=== PATIENT | female | born 1980 | race Caucasian/White ===

== ENCOUNTER 2018-07-03 15:07 | Emergency (ER) | payer OTHER, SELFPAY ==
[2018-07-03 15:10] VITALS: BP 124/71; PULSE 82; RESP 14; TEMP 36.3; O2SAT 100; BMI 23.3
--- NOTE | 2018-07-03 15:50 | ED.ABDPAIN ---
HPI - Abdominal Pain <Jaleesa Corona PA-C - Last Filed: 07/03/18 21:58> General Chief Complaint: Abdominal Pain Stated Complaint: PELVIC PAIN ABD PAIN Time Seen by Provider: 07/03/18 15:41 Source: patient Mode of arrival: ambulatory Limitations: no limitations History of Present Illness HPI narrative: This 37-year-old male to worsening pelvic pain. She states that this started 2 days ago and was just treating with [id number] medications but became more severe while driving to work this morning. She took ibuprofen, acetaminophen but pain continued to worsen. She came home and took a couple of leftover Percocet from her hysterectomy, but this has continued to worsen. Pain is sharp, constant, worse with walking, movement and certain positions, better with warm pack applied. She had a left oophorectomy 03/10 and endometriosis lesions removed. There was an endometrioma on the ovary. She has a history of hysterectomy secondary to endometriosis and fibroids. She was also found to have a leiomyoma on her recent surgery. Her right ovary is intact. She states that she had a painful bowel movement this morning, but no blood in the stools, hard stools, or diarrhea. She has had intermittent bladder and urethral pain for some time, and has chronic hematuria. She states that she has had uro gynecology workup including CT, ultrasound, cystoscopy and no specific cause found. She states that she has a little bit of nausea which is related to her pain, but she has eaten today and has not had vomiting. She does not feel like the pain is in her abdomen, feels like it is more localized. She denies any fever or recent illness. Related Data Allergies Allergy/AdvReac Type Severity Reaction Status Date / Time No Known Drug Allergies Allergy Verified 07/03/18 15:10 Review of Systems <Jaleesa Corona PA-C - Last Filed: 07/03/18 21:58> Review of Systems ROS Unobtainable: All systems reviewed & are unremarkable except as noted in HPI and below Exam <Jaleesa Corona PA-C - Last Filed: 07/03/18 21:58> Narrative Exam Narrative: GENERAL APPEARANCE: Patient appears somewhat uncomfortable, in NAD HEENT: PERRL, EOMI, no scleral icterus, normal oropharynx NECK: Supple LUNGS: Clear to auscultation bilaterally. HEART: Rate and rhythm regular, normal S1 and S2, no S3 or S4. ABDOMEN: Soft, nondistended, bowel sounds present x 4 quadrants, no masses palpable, no hepatosplenomegaly. Minimal tenderness over the left lower quadrant, more tender over the left adnexal area and moderate tenderness over the suprapubic area. No tenderness over the right adnexa. No guarding or rebound. Tenderness is elicited with left hip rotation and Jillian test EXTREMITIES: No edema, no cyanosis DERMATOLOGIC: No jaundice or exanthem NEUROLOGIC: Alert and oriented with normal speech and coordination Initial Vital Signs Initial Vital Signs: Vital Signs Temperature 97.3 F L 07/03/18 15:10 Pulse Rate 82 07/03/18 15:10 Respiratory Rate 14 07/03/18 15:10 Blood Pressure 124/71 07/03/18 15:10 Pulse Oximetry 100 07/03/18 15:10 <Pili Gao DO - Last Filed: 07/04/18 08:57> Initial Vital Signs Initial Vital Signs: Vital Signs Temperature 97.3 F L 07/03/18 15:10 Pulse Rate 82 07/03/18 15:10 Respiratory Rate 14 07/03/18 15:10 Blood Pressure 124/71 07/03/18 15:10 Pulse Oximetry 100 07/03/18 15:10 Course <Jaleesa Corona PA-C - Last Filed: 07/03/18 21:58> Additional Information: Patient was actually feeling significantly improved in the exam room. By the time nursing medicated her, she had started to feel better and declined Dilaudid. She continued to feel better during her stay and felt back to baseline after workup was done. She did not feel further workup was needed today after we reviewed findings, but agreed to return if acutely worsening symptoms or new symptoms such as fever or vomiting. Orders Ordered: Discontinued Medications Hydromorphone HCl (Dilaudid) 0.5 mg IV NOW ONE Stop: 07/03/18 16:09 Last Admin: 07/03/18 18:41 Dose: Not Given Sodium Chloride (Normal Saline 0.9%) 1,000 mls @ 1,000 mls/hr IV BOLUS ONE Stop: 07/03/18 17:07 Last Infusion: 07/03/18 17:39 Dose: 0 mls/hr Admin: 07/03/18 16:39 Dose: 1,000 mls/hr Ketorolac Tromethamine (Toradol) 30 mg IV NOW ONE Stop: 07/03/18 16:09 Last Admin: 07/03/18 16:40 Dose: 30 mg Ondansetron HCl (Zofran) 4 mg IV NOW ONE Stop: 07/03/18 16:09 Last Admin: 07/03/18 16:40 Dose: 4 mg Vital Signs - 8 hr 07/03/18 15:10 07/03/18 16:44 07/03/18 17:24 Temperature 97.3 F L Pulse Rate 82 64 62 Respiratory Rate 14 16 17 Blood Pressure 124/71 Blood Pressure [Left Arm] 112/63 100/54 L Pulse Oximetry 100 98 100 <Pili Gao DO - Last Filed: 07/04/18 08:57> Orders Ordered: Discontinued Medications Hydromorphone HCl (Dilaudid) 0.5 mg IV NOW ONE Stop: 07/03/18 16:09 Last Admin: 07/03/18 18:41 Dose: Not Given Sodium Chloride (Normal Saline 0.9%) 1,000 mls @ 1,000 mls/hr IV BOLUS ONE Stop: 07/03/18 17:07 Last Infusion: 07/03/18 17:39 Dose: 0 mls/hr Admin: 07/03/18 16:39 Dose: 1,000 mls/hr Ketorolac Tromethamine (Toradol) 30 mg IV NOW ONE Stop: 07/03/18 16:09 Last Admin: 07/03/18 16:40 Dose: 30 mg Ondansetron HCl (Zofran) 4 mg IV NOW ONE Stop: 07/03/18 16:09 Last Admin: 07/03/18 16:40 Dose: 4 mg Vital Signs - 8 hr 07/03/18 15:10 07/03/18 16:44 07/03/18 17:24 Temperature 97.3 F L Pulse Rate 82 64 62 Respiratory Rate 14 16 17 Blood Pressure 124/71 Blood Pressure [Left Arm] 112/63 100/54 L Pulse Oximetry 100 98 100 MDM - Abdominal Pain <Jaleesa Corona PA-C - Last Filed: 07/03/18 21:58> Lab Data Result diagrams: 07/03/18 16:35 07/03/18 16:35 Lab Results 07/03/18 07/03/18 Range/Units 16:35 16:35 WBC 11.7 H (4.5-11.0) X10^3/uL RBC 4.00 (4.0-5.2) X10^6/uL Hgb 12.7 (12.0-16.0) g/dL Hct 37.7 (36-46) % MCV 94.2 (80-100) fL MCH 31.8 (26-34) PG MCHC 33.7 (30-36) % RDW 12.1 (11.6-14.8) % Plt Count 259 (150-400) X10^3/uL Neut % (Auto) 85.0 H (50-75) % Lymph % (Auto) 7.6 L (25-40) % [place] % (Auto) 6.1 (3-14) % Eos % (Auto) 0.9 L (2-4) % Baso % (Auto) 0.4 (0-2) % Neut # (Auto) 69791 H (5199-8008) /uL Lymph # (Auto) 900 L (7213-4329) /uL [place] # (Auto) 700 (0-900) /uL Eos # (Auto) 100 (0-450) /uL Baso # (Auto) 0 (0-100) /uL Sodium 140 (137-145) mmol/L Potassium 3.9 (3.4-5.1) mmol/L Chloride 105 (98-107) mmol/L Carbon Dioxide 25 (22-32) mmol/L BUN 15 (7-17) mg/dL Creatinine 0.70 (0.52-1.04) mg/dL Estimated GFR > 60.0 (>60) mL/min BUN/Creatinine Ratio 21.4 (6-22) Glucose 120 H (70-100) mg/dL Calcium 8.9 (8.4-10.2) mg/dL Total Bilirubin 0.3 (0.2-1.3) mg/dL AST 19 (14-36) IU/L ALT 22 (9-52) IU/L Alkaline Phosphatase 52 (38-126) U/L Total Protein 7.5 (6.3-8.2) g/dL Albumin 4.3 (3.5-5.0) g/dL Globulin 3.2 (1.7-4.1) g/dL Albumin/Globulin Ratio 1.3 (1.0-2.8) Point of care testing: Urine Dip Bedside Urine Glucose Negative Bedside Urine Bilirubin - Negative Bedside Urine Ketone - Negative Urine Specific [place] 1.025 Bedside Urine Occult Blood +/- Bedside Urine pH 6.0 Bedside Urine Protein +/- 15 Bedside Urine Urobilinogen - Negative Bedside Urine Nitrite - Negative Bedside Urine Leukocytes - Negative Esterase Imaging Data US pelvis: Radiologist's impression: View Report History [address] [address] Ultrasound Report Signed Patient: Cony Denton MR#: [id number] : 1980 Acct:[id number] Age/Sex: 37 / F Date of Service: 07/03/18 Loc: ED Accession Number: [id number] Procedure: US pelvic complete Ordering Provider: Jaleesa Corona P.A-C PROCEDURE: US PELVIC COMPLETE INDICATIONS: L. pelvic, adenexal pain s/p oophorect/endometriosis/mass TECHNIQUE: Real-time scanning was performed of the pelvic organs, with image documentation. Additional endovaginal scanning was necessary due to incomplete visualization of the adnexal and endometrial structures by transabdominal scanning. COMPARISON: None. FINDINGS: Transabdominal scanning: Limited scanning through the kidneys shows no hydronephrosis. No pathologic free abdominal or pelvic fluid. Endovaginal scanning: Uterus: Uterus is absent. Nabothian cyst is incidentally noted. Ovaries: Left ovary measures 21 x 20 x 26 mm. Left ovary is absent. IMPRESSION: 1. Nabothian cyst. Otherwise, unremarkable. Dictated by: Layne Puckett M.D. on 07/03/2018 at 17:39 Approved by: Layne Puckett M.D. on 07/03/2018 at 17:40 <Pili Gao DO - Last Filed: 07/04/18 08:57> Lab Data Lab Results 07/03/18 07/03/18 Range/Units 16:35 16:35 WBC 11.7 H (4.5-11.0) X10^3/uL RBC 4.00 (4.0-5.2) X10^6/uL Hgb 12.7 (12.0-16.0) g/dL Hct 37.7 (36-46) % MCV 94.2 (80-100) fL MCH 31.8 (26-34) PG MCHC 33.7 (30-36) % RDW 12.1 (11.6-14.8) % Plt Count 259 (150-400) X10^3/uL Neut % (Auto) 85.0 H (50-75) % Lymph % (Auto) 7.6 L (25-40) % [place] % (Auto) 6.1 (3-14) % Eos % (Auto) 0.9 L (2-4) % Baso % (Auto) 0.4 (0-2) % Neut # (Auto) 81783 H (2907-0756) /uL Lymph # (Auto) 900 L (4367-9230) /uL [place] # (Auto) 700 (0-900) /uL Eos # (Auto) 100 (0-450) /uL Baso # (Auto) 0 (0-100) /uL Sodium 140 (137-145) mmol/L Potassium 3.9 (3.4-5.1) mmol/L Chloride 105 (98-107) mmol/L Carbon Dioxide 25 (22-32) mmol/L BUN 15 (7-17) mg/dL Creatinine 0.70 (0.52-1.04) mg/dL Estimated GFR > 60.0 (>60) mL/min BUN/Creatinine Ratio 21.4 (6-22) Glucose 120 H (70-100) mg/dL Calcium 8.9 (8.4-10.2) mg/dL Total Bilirubin 0.3 (0.2-1.3) mg/dL AST 19 (14-36) IU/L ALT 22 (9-52) IU/L Alkaline Phosphatase 52 (38-126) U/L Total Protein 7.5 (6.3-8.2) g/dL Albumin 4.3 (3.5-5.0) g/dL Globulin 3.2 (1.7-4.1) g/dL Albumin/Globulin Ratio 1.3 (1.0-2.8) Point of care testing: Urine Dip Bedside Urine Glucose Negative Bedside Urine Bilirubin - Negative Bedside Urine Ketone - Negative Urine Specific [place] 1.025 Bedside Urine Occult Blood +/- Bedside Urine pH 6.0 Bedside Urine Protein +/- 15 Bedside Urine Urobilinogen - Negative Bedside Urine Nitrite - Negative Bedside Urine Leukocytes - Negative Esterase Discharge Plan Departure Patient Disposition: Home Clinical Impression: Pelvic pain, Nausea Discharge Date/Time: 07/03/18 18:40 Interventions: ED Discharge Assessment Last Done: 07/03/18 18:30 Instructions: DI for Abdominal Pain-Adult Activity Restrictions/Additional Instructions: The source of your pain today was not clear on your ultrasound or lab work. Since you are feeling better, you can return home and monitor, but as we talked about please return if you have acutely worsening symptoms again, or new symptoms such as vomiting or fever. Otherwise, please follow-up with either your PCP or metal miner blasting next week for recheck and to further testing should be done depending upon your progress Referrals: Mar Polk [Other] <Pili Gao DO - Last Filed: 07/04/18 08:57> Cosign ED Attending Colleen Attestation: I was immediately available in the department for consultation. Documentation has been reviewed. I agree with assessment and plan.
--- NOTE | 2018-07-03 16:08 | DI.US.S_ITS ---
PROCEDURE: US PELVIC COMPLETE INDICATIONS: L. pelvic, adenexal pain s/p oophorect/endometriosis/mass TECHNIQUE: Real-time scanning was performed of the pelvic organs, with image documentation. Additional endovaginal scanning was necessary due to incomplete visualization of the adnexal and endometrial structures by transabdominal scanning. COMPARISON: None. FINDINGS: Transabdominal scanning: Limited scanning through the kidneys shows no hydronephrosis. No pathologic free abdominal or pelvic fluid. Endovaginal scanning: Uterus: Uterus is absent. Nabothian cyst is incidentally noted. Ovaries: Left ovary measures 21 x 20 x 26 mm. Left ovary is absent. IMPRESSION: 1. Nabothian cyst. Otherwise, unremarkable. Dictated by: Layne Puckett M.D. on 07/03/2018 at 17:39 Approved by: Layne Puckett M.D. on 07/03/2018 at 17:40
[2018-07-03] MEDS: SODIUM CHLORIDE 0.9% 1,000 ML 1000 ML IV (16:39)
[2018-07-03] MEDS: KETOROLAC 60 MG/2 ML VIAL 30 MG IV (16:40)
[2018-07-03] MEDS: ONDANSETRON 4 MG/2 ML INJ IV (16:40)
[2018-07-03 16:44] VITALS: BP 112/63; PULSE 64; RESP 16; O2SAT 98
[2018-07-03 16:58] LABS: Add Manual Diff / Slide Review NO; Basophils Absolute Auto 0 /uL (0-100); Basophils Percent Auto 0.4 % (0-2); Eosinophils Absolute Auto 100 /uL (0-450); Eosinophils Percent Auto 0.9 % (2-4); Hematocrit 37.7 % (36-46); Hemoglobin 12.7 g/dL (12.0-16.0); Lymphocytes Absolute Auto 900 /uL (1100-4500); Lymphocytes Percent Auto 7.6 % (25-40); Mean Corpuscular HGB Conc 33.7 % (30-36); Mean Corpuscular Hemoglobin 31.8 PG (26-34); Mean Corpuscular Volume 94.2 fL (80-100); Monocytes Absolute Auto 700 /uL (0-900); Monocytes Percent Auto 6.1 % (3-14); Neutrophils Absolute Auto 10000 /uL (1500-7000); Platelet Count 259 X10^3/uL (150-400); Red Cell Distribution Width 12.1 % (11.6-14.8); White Blood Cell Count 11.7 X10^3/uL (4.5-11.0)
[2018-07-03 17:11] LABS: Alanine Aminotransferase 22 IU/L (9-52); Albumin 4.3 g/dL (3.5-5.0); Albumin Globulin Ratio 1.3 (1.0-2.8); Alkaline Phosphatase 52 U/L (38-126); Aspartate Aminotransferase 19 IU/L (14-36); BUN Creatinine Ratio 21.4 (6-22); Bilirubin Total 0.3 mg/dL (0.2-1.3); Blood Urea Nitrogen 15 mg/dL (7-17); Calcium 8.9 mg/dL (8.4-10.2); Carbon Dioxide 25 mmol/L (22-32); Chloride 105 mmol/L (98-107); Estimated Glomerular Filt Rate > 60.0 mL/min (>60); Globulin 3.2 g/dL (1.7-4.1); Glucose 120 mg/dL (70-100); HEMOLYSIS 19 (0-50); Potassium 3.9 mmol/L (3.4-5.1); Sodium 140 mmol/L (137-145); Total Protein 7.5 g/dL (6.3-8.2)
[2018-07-03 17:24] VITALS: BP 100/54; PULSE 62; RESP 17; O2SAT 100
== END 2018-07-03 18:40 | disposition home or self-care (01) ==
PROVIDERS: Emergency Provider Internal Medicine
DX: R10.2 Pelvic and perineal pain (principal); R11.0 Nausea
CPT/HCPCS: 76830; 76856; 80053; 81003; 85025; 96361; 96374; 96375; 99283; 99284; J1170; J1885; J2405

== ENCOUNTER → 2020-04-13 | Outpatient (CLI) | payer OTHER, SELFPAY | PROVIDERS: PCP Internal Medicine; Referring Provider Internal Medicine; Visit Provider Internal Medicine | DX: Z23 Encounter for immunization (principal) | CPT/HCPCS: 90471; 90686 ==

== ENCOUNTER → 2020-05-13 13:15 | Outpatient (CLI) | payer OTHER, SELFPAY ==
--- NOTE | 2020-05-13 13:40 | DI.MG.S_ITS ---
Patient Name: CHEMA JADE date: 1980 Sex: F Attending Physician: Rena Indications: Date: 05/13/2020 13:32 At the request of: ARNEL MARSHALL Procedure: MM screening mammo implant BI BILATERAL DIGITAL SCREENING MAMMOGRAM 3D/2D WITH CAD WITH AUGMENTATION: 05/13/2020 CLINICAL: Routine screening. Baseline exam. Family history of breast cancer. No prior exams were available for comparison. The tissue of both breasts is heterogeneously dense. This may lower the sensitivity of mammography. Current study was also evaluated with a Computer Aided Detection (CAD) system. Bilateral breast implants are intact. There are benign calcifications in both breasts. No significant masses, calcifications, or other findings are seen in either breast. IMPRESSION: BENIGN There is no mammographic evidence of malignancy. A 1 year screening mammogram is recommended. This exam was interpreted at Station ID: [id number]. NOTE: For mammograms, a report in lay terms will be sent to the patient. Approximately 15% of breast malignancies will not be visualized mammographically. In the management of a palpable breast mass, a negative mammogram must not discourage biopsy of a clinically suspicious lesion. Electronically Signed By: Jose Angel mercado/arash:05/15/2020 08:09:10 letter sent: Normal Exam ACR BI-RADS Category 2: Benign Finding(s) 3342F
== END ==
PROVIDERS: PCP Family Medicine; Referring Provider Family Medicine; Visit Provider Family Medicine
DX: Z12.31 Encounter for screening mammogram for malignant neoplasm of breast (principal)
CPT/HCPCS: 77063; 77067

== ENCOUNTER → 2020-06-28 09:58 | Outpatient (CLI) | payer OTHER, SELFPAY ==
[2020-06-28] MEDS: COVID-19 VACC(MODERNA-1)/PF 100 MCG/0.5 ML VIAL IM (10:04)
== END ==
PROVIDERS: PCP Family Medicine; Visit Provider Internal Medicine
DX: Z23 Encounter for immunization (principal)
CPT/HCPCS: 0011A; 91301

== ENCOUNTER 2020-07-11 13:00 | Outpatient (RCR) | payer OTHER, SELFPAY ==
--- NOTE | 2020-07-04 11:49 | PT.OIE ---
Current Diagnoses Pain in left knee (07/04/20) Past Medical History (Last Updated 07/03/18 @ 16:16 by Jaleesa Corona PA-C) Endometriosis Other chronic cystitis with hematuria Past Surgical History (Last Updated 07/03/18 @ 16:16 by Jaleesa Corona PA-C) History of third molar tooth extraction S/P left oophorectomy Status post breast augmentation Status post knee surgery Status post laparoscopic supracervical hysterectomy (01/06/15) Visit Care Team Role Provider Type Lary Chase Primary Care Provider Non-Staff Specialty: Family Practice Address: [address] [place] [address], [phone] Fax: Email: Ariadne Martínez DO Attending Provider Non-Staff Referring Provider Specialty: Medical Address: [address] [place] [address], [id number] Email: Physical Therapy Initial Evaluation PT-OP-A Visit Information Start: 07/04/20 11:22 Freq: Status: Active Protocol: Document 07/04/20 11:23 (Rec: 07/04/20 11:49 [email or web address]) Out-Patient Physical Therapy Visit Information Visit Information Visit Type Initial Evaluation Visit Start Time 10:30 Visit Stop Time 11:15 Total Visit Minutes 45 Visit Number 07/04 Number of SPECIAL LOAN OFFICER Visits 0 Evaluation Information Evaluation Date 07/04/20 Precautions Precautions none PT-OP-B Current Condition Start: 07/04/20 11:22 Freq: Status: Active Protocol: Document 07/04/20 11:23 (Rec: 07/04/20 11:49 [email or web address]) Current Condition History of Current Condition Onset Date about 6 months ago Current Complaints L medial knee pain History of Current Condition Pt is a 39 yo healthy and active female for her new onset of L medial pain started about 6 months ago. She does not recall any injury but she was training for running 13-15 miles a week. She somehow started feeling L medial pain which gets worse with end range flexion, kneeling, any twisting motions. Her symptoms got better in 2 months and she attempted to run again but it got worse again. Pt then has been backing down with her exercise routine who is only able to 2 miles walk/ jogging at a time. Pt had L knee X-ray in May but negative findings. She consulted her PCP through telehealth and was referred to PT here. She hopes she can fully return to her full running training in the future. Prior Treatments and Tests x-ray in May = negative findings for fx. Pt had a tanner removal at [facility] in 1991. PT-OP-C Subjective Start: 07/04/20 11:22 Freq: Status: Active Protocol: Document 07/04/20 11:23 HH (Rec: 07/04/20 11:49 [email or web address]) Patient Questionnaires Lower Extremity Functional Scale LEFS Score 77 LEFS Impairment 1 to 19% Impaired (Score 63-79 ) OP-PT Pain Assessment Location L medial knee Pain Location Details MCL location Intensity 3 Scale Used Numeric (0 - 10) Description Aching,With Movement Frequency Frequent Pain Aggravating Factors Position,Changing Position, Activity,Exercise,Bending Pain Alleviating Factors Standing,Changing Position, Rest PT-OP-D Balance Start: 07/04/20 11:22 Freq: Status: Active Protocol: Document 07/04/20 11:23 HH (Rec: 07/04/20 11:49 [email or web address]) Balance Tests Single Limb Standing Single Limb- Right >60s Single Limb- Left >60s , noted less stable PT-OP-E Functional Tests Start: 07/04/20 11:22 Freq: Status: Active Protocol: Document 07/04/20 11:23 HH (Rec: 07/04/20 11:49 [email or web address]) Functional Tests Single Leg Squat Test Score R= 18inches, L= 20.5 inches ( adjsutable table) Comment L shows less stable. PT-OP-F Manual Assessment Start: 07/04/20 11:22 Freq: Status: Active Protocol: Document 07/04/20 11:23 HH (Rec: 07/04/20 11:49 [email or web address]) Manual Assessments Soft Tissue Assessment Soft Tissue Mobility Assessment tenderness to light pressure at L MCL region PT-OP-G Mobility & Gait Start: 07/04/20 11:22 Freq: Status: Active Protocol: Document 07/04/20 11:23 HH (Rec: 07/04/20 11:49 [email or web address]) OP Gait Assessment Comments Gait Comments WFL, no antalgic / compensation noted. PT-OP-K Range of Motion Start: 07/04/20 11:22 Freq: Status: Active Protocol: Document 07/04/20 11:23 HH (Rec: 07/04/20 11:49 [email or web address]) Hip Goniometric Range of Motion Hip Right Active Internal Rotation 49 External Rotation 38 Left Active Hip ROM WFL Yes Internal Rotation 47 External Rotation 36 Knee Goniometric Range of Motion Knee Right Knee ROM WFL Yes Comments no discomfort noted Left Knee ROM WFL Yes Comments no discomfort noted PT-OP-L Special Tests Start: 07/04/20 11:22 Freq: Status: Active Protocol: Document 07/04/20 11:23 HH (Rec: 07/04/20 11:49 [email or web address]) Special Tests Knee Special Tests Apley's Compression Test Results -ve Oliverio Test Test Results -ve Varus- 25 Degrees Test Results -ve Varus- 0 Degrees Test Results -ve Valgus- 25 Degrees Test Results +ve with L medial knee pain Valgus- 0 Degrees Test Results -ve Simona's Test Results -ve PT-OP-M Strength Start: 07/04/20 11:22 Freq: Status: Active Protocol: Document 07/04/20 11:23 HH (Rec: 07/04/20 11:49 [email or web address]) Hip Strength Hip Manual Muscle Testing Right Flexion (L2) 5 Normal Extension (S1) 5 Normal Abduction 5 Normal Adduction 5 Normal Left Flexion (L2) 5 Normal Extension (S1) 5 Normal Abduction 5 Normal Adduction 5 Normal Knee Strength Knee Manual Muscle Testing Right Flexion (S2) 5 Normal Extension (L3) 5 Normal Left Flexion (S2) 5 Normal Extension (L3) 5 Normal Ankle/Foot Strength Ankle and Foot Manual Muscle Testing Right Dorsiflexion (L4) 5 Normal Plantarflexion (S1) 5 Normal Left Dorsiflexion (L4) 5 Normal Plantarflexion (S1) 5 Normal PT-OP-Q Treatments Start: 07/04/20 11:22 Freq: Status: Active Protocol: Document 07/04/20 11:23 HH (Rec: 07/04/20 11:49 HH [email or web address]) Therapeutic Exercises Supine Exercises resisted knee flexion Supine Exercise Name end range, self resisted ( isometric) Side left Reps/Minutes 5 sec hold x 5 Comments for HEP Manual Therapy Treatment Soft Tissue Mobilization MCL Mobilization Type Sustained Pressure,Trigger Point Release Intensity/Depth Moderate Body Position Hooklying Comments tenderness noted with pressure at MCL region, but improved after STM. PT-OP-T Assessment and Plan Start: 07/04/20 11:22 Freq: Status: Active Protocol: Document 07/04/20 11:23 HH (Rec: 07/04/20 11:49 HH [email or web address]) Physical Therapy Assessment Rehab Potential Rehabilitation Potential Excellent Evaluation Complexity Number of Personal Factors/Comorbidities 0 Number of Body Systems Impaired 1-2 Clinical Presentation at Evaluation Stable Impairments Impairments Activity Tolerance,Balance, Functional Activities, Functional Mobility,Pain,Soft Tissue Mobility,Strength Goals return to running Impairment pt currently unable to run d/t pain Short Term Goal (STG) pt will be able to complete a 2 mile run x 3times/ week without increase on L medial knee pain STG Duration 4 weeks Detention Goal (LTG) pt will be able to complete a 5 mile run x 3times/ week without L knee discomfort LTG Duration 8 weeks single leg strength Impairment SLS on L = 20.5 inches from table, R = 18 inches Boarding Kennel Or Cattery Operator Goal (LTG) Pt will show increase in single leg stability and strength to be able to complete single leg squat from a 18 inches surface. LTG Duration 8 weeks LEFS Impairment pt scores 77 on LEFS Boarding Kennel Or Cattery Operator Goal (LTG) pt will score 80 on LEFS to return to her PLOF without any difficulty LTG Duration 8 weeks Assessment Summary Assessment Pt is a 39 yo active and healthy female here for her L medial knee pain with unknown mechanism of injury. Based on assessment, pt had minor MCL strain at L knee with residual pain. Her ROM, strength = WNL but single leg strength and stability are still affected. Her single leg squat on L = 20 .5 inches level; R = 18 inches level, she also discomfort with pressure at end range knee flexion. Pt will benefit from skilled therapy to reduce her pain sensitivity by manual therapy, single leg stability and strength training in order for her to fully return to her running routine which is 12-15 miles/ week. Physical Therapy Plan Frequency and Duration Duration of Treatment 8 weeks Plan of Care Start Date 07/04/20 Plan of Care End Date 09/02/20 Therapeutic Interventions Therapeutic Interventions Balance Training,Coordination Training,Gait Training,Home Exercise Program,Joint Mobilizations,Manual Therapy, Neuromuscular Re-education, Patient/Caregiver Education, Self-Care/Home Management,Soft Tissue Mobilization,Taping, Therapeutic Activities, Therapeutic Exercises Modalities Cold Pack/Ice Massage,Electric Stimulation,Hot Packs, Infrared Therapy,Ultrasound Next Visit Focus/Plan Next Note Type Treatment Note Next Visit Plan check thessaly, star excursion STM on MCL MET on end range flexion end range flexion strengthening start with isometric, con and eCC single leg stability, leg press, step up kneeling.
--- NOTE | 2020-07-04 11:50 | PT.OPPOC ---
Physical, Occupational & Speech Therapy At [facility] Current Diagnoses Pain in left knee (07/04/20) Visit Care Team Role Provider Type Lary Chase Primary Care Provider Non-Staff Specialty: Family Practice Address: [address] [place] [address], [phone] Fax: Email: Ariadne Martínez DO Attending Provider Non-Staff Referring Provider Specialty: Medical Address: [address] [place] [address], [phone] Email: Plan Of Care PT-OP-T Assessment and Plan Start: 07/04/20 11:22 Freq: Status: Active Protocol: Document 07/04/20 11:23 (Rec: 07/04/20 11:49 [email or web address]) Physical Therapy Assessment Rehab Potential Rehabilitation Potential Excellent Evaluation Complexity Number of Personal Factors/Comorbidities 0 Number of Body Systems Impaired 1-2 Clinical Presentation at Evaluation Stable Impairments Impairments Activity Tolerance,Balance, Functional Activities, Functional Mobility,Pain,Soft Tissue Mobility,Strength Goals return to running Impairment pt currently unable to run d/t pain Short Term Goal (STG) pt will be able to complete a 2 mile run x 3times/ week without increase on L medial knee pain STG Duration 4 weeks Fdc Goal (LTG) pt will be able to complete a 5 mile run x 3times/ week without L knee discomfort LTG Duration 8 weeks single leg strength Impairment SLS on L = 20.5 inches from table, R = 18 inches Fdc Goal (LTG) Pt will show increase in single leg stability and strength to be able to complete single leg squat from a 18 inches surface. LTG Duration 8 weeks LEFS Impairment pt scores 77 on LEFS Fdc Goal (LTG) pt will score 80 on LEFS to return to her PLOF without any difficulty LTG Duration 8 weeks Assessment Summary Assessment Pt is a 39 yo active and healthy female here for her L medial knee pain with unknown mechanism of injury. Based on assessment, pt had minor MCL strain at L knee with residual pain. Her ROM, strength = WNL but single leg strength and stability are still affected. Her single leg squat on L = 20 .5 inches level; R = 18 inches level, she also discomfort with pressure at end range knee flexion. Pt will benefit from skilled therapy to reduce her pain sensitivity by manual therapy, single leg stability and strength training in order for her to fully return to her running routine which is 12-15 miles/ week. Physical Therapy Plan Frequency and Duration Duration of Treatment 8 weeks Plan of Care Start Date 07/04/20 Plan of Care End Date 09/02/20 Therapeutic Interventions Therapeutic Interventions Balance Training,Coordination Training,Gait Training,Home Exercise Program,Joint Mobilizations,Manual Therapy, Neuromuscular Re-education, Patient/Caregiver Education, Self-Care/Home Management,Soft Tissue Mobilization,Taping, Therapeutic Activities, Therapeutic Exercises Modalities Cold Pack/Ice Massage,Electric Stimulation,Hot Packs, Infrared Therapy,Ultrasound Next Visit Focus/Plan Next Note Type Treatment Note Next Visit Plan check thessaly, star excursion STM on MCL MET on end range flexion end range flexion strengthening start with isometric, con and eCC single leg stability, leg press, step up kneeling. Plan of Care Dates Plan of Care Start Date 07/04/20 Plan of Care End Date 09/02/20 Electronically Signed by: Sarah Baird PT 07/04/20 [id number] Please Sign and Return: I have reviewed this Plan of Care and certify that the skilled therapy services above are required to meet the patient?s needs. Physician Signature Date Printed Name and Credentials Clinical Instructor Signature Printed Name and Credentials
--- NOTE | 2020-07-11 13:45 | PT.OTN ---
Current Diagnoses Pain in left knee (07/11/20) Physical Therapy Treatment Note PT-OP-A Visit Information Start: 07/04/20 11:22 Freq: Status: Active Protocol: Document 07/11/20 13:01 SP (Rec: 07/11/20 15:34 SP [id number]) Out-Patient Physical Therapy Visit Information Visit Information Visit Type Treatment Note Visit Start Time 13:01 Visit Stop Time 13:45 Total Visit Minutes 44 Visit Number 2/ Number of RENDERING EQUIPMENT TENDER Visits 1 PT-OP-B Current Condition Start: 07/04/20 11:22 Freq: Status: Active Protocol: Document 07/04/20 11:23 HH (Rec: 07/04/20 11:49 HH [email or web address]) Current Condition History of Current Condition Onset Date about 6 months ago Current Complaints L medial knee pain History of Current Condition Pt is a 39 yo healthy and active female for her new onset of L medial pain started about 6 months ago. She does not recall any injury but she was training for running 13-15 miles a week. She somehow started feeling L medial pain which gets worse with end range flexion, kneeling, any twisting motions. Her symptoms got better in 2 months and she attempted to run again but it got worse again. Pt then has been backing down with her exercise routine who is only able to 2 miles walk/ jogging at a time. Pt had L knee X-ray in May but negative findings. She consulted her PCP through telehealth and was referred to PT here. She hopes she can fully return to her full running training in the future. Prior Treatments and Tests x-ray in Dec = negative findings for fx. Pt had a tanner removal at L patella in 1991. PT-OP-C Subjective Start: 07/04/20 11:22 Freq: Status: Active Protocol: Document 07/11/20 13:01 SP (Rec: 07/11/20 15:34 SP [id number]) OP-PT Subjective Patient Comments Patient Comments Pt reported pretty sore medial L knee after last tx. Pt commented that does have some pirformis pain at times on L and what can do for it when gets irritated. Pt stated does use CP when needed for pain control. PT-OP-D Balance Start: 07/04/20 11:22 Freq: Status: Active Protocol: Document 07/04/20 11:23 HH (Rec: 07/04/20 11:49 [email or web address]) Balance Tests Single Limb Standing Single Limb- Right >60s Single Limb- Left >60s , noted less stable PT-OP-E Functional Tests Start: 07/04/20 11:22 Freq: Status: Active Protocol: Document 07/04/20 11:23 HH (Rec: 07/04/20 11:49 [email or web address]) Functional Tests Single Leg Squat Test Score R= 18inches, L= 20.5 inches ( adjsutable table) Comment L shows less stable. PT-OP-F Manual Assessment Start: 07/04/20 11:22 Freq: Status: Active Protocol: Document 07/04/20 11:23 HH (Rec: 07/04/20 11:49 [email or web address]) Manual Assessments Soft Tissue Assessment Soft Tissue Mobility Assessment tenderness to light pressure at L MCL region PT-OP-G Mobility & Gait Start: 07/04/20 11:22 Freq: Status: Active Protocol: Document 07/04/20 11:23 HH (Rec: 07/04/20 11:49 [email or web address]) OP Gait Assessment Comments Gait Comments WFL, no antalgic / compensation noted. PT-OP-K Range of Motion Start: 07/04/20 11:22 Freq: Status: Active Protocol: Document 07/04/20 11:23 HH (Rec: 07/04/20 11:49 [email or web address]) Hip Goniometric Range of Motion Hip Right Active Internal Rotation 49 External Rotation 38 Left Active Hip ROM WFL Yes Internal Rotation 47 External Rotation 36 Knee Goniometric Range of Motion Knee Right Knee ROM WFL Yes Comments no discomfort noted Left Knee ROM WFL Yes Comments no discomfort noted PT-OP-L Special Tests Start: 07/04/20 11:22 Freq: Status: Active Protocol: Document 07/04/20 11:23 HH (Rec: 07/04/20 11:49 [email or web address]) Special Tests Knee Special Tests Apley's Compression Test Results -ve Oliverio Test Test Results -ve Varus- 25 Degrees Test Results -ve Varus- 0 Degrees Test Results -ve Valgus- 25 Degrees Test Results +ve with L medial knee pain Valgus- 0 Degrees Test Results -ve Simona's Test Results -ve PT-OP-M Strength Start: 07/04/20 11:22 Freq: Status: Active Protocol: Document 07/04/20 11:23 HH (Rec: 07/04/20 11:49 HH [email or web address]) Hip Strength Hip Manual Muscle Testing Right Flexion (L2) 5 Normal Extension (S1) 5 Normal Abduction 5 Normal Adduction 5 Normal Left Flexion (L2) 5 Normal Extension (S1) 5 Normal Abduction 5 Normal Adduction 5 Normal Knee Strength Knee Manual Muscle Testing Right Flexion (S2) 5 Normal Extension (L3) 5 Normal Left Flexion (S2) 5 Normal Extension (L3) 5 Normal Ankle/Foot Strength Ankle and Foot Manual Muscle Testing Right Dorsiflexion (L4) 5 Normal Plantarflexion (S1) 5 Normal Left Dorsiflexion (L4) 5 Normal Plantarflexion (S1) 5 Normal PT-OP-Q Treatments Start: 07/04/20 11:22 Freq: Status: Active Protocol: Document 07/11/20 13:01 SP (Rec: 07/11/20 15:34 SP [id number]) Cardio Equipment Bicycle (Upright) Duration (Minutes) 8 Resistance 8 Seat Position 4 Other 4.4 miles Therapeutic Exercises Supine Exercises resisted knee extension Supine Exercise Name review HEP per PT performance: end range, self resisted ( isometric) resisted knee flexion Supine Exercise Name therapist isometric Side left Resistance manual Reps/Minutes 5 sec hold x 5 various ranges Comments slight med discomfort jt line mechanic to end range flexion Sitting Exercises stick roll quad, HS, ITB, gastroc Side left Reps/Minutes 1 min total Comments pressure/ time tolerance- good response HS curl/ isometric w TB Side left Resistance Tb #2 Reps/Minutes 5 sec hold 10 Comments cued slow pacing control, knee / ankle alignment for HS facilitation Manual Therapy Treatment Soft Tissue Mobilization L medial knee mm Body Location superior medial gastroc, medial B HS, distal adductors Mobilization Type Myofascial Release,Strumming, Sustained Pressure Intensity/Depth Moderate Body Position Hooklying MCL Mobilization Type Sustained Pressure,Trigger Point Release Intensity/Depth Moderate Body Position Hooklying Comments tenderness noted with pressure at MCL region, but improved after STM. Joint Mobilizations Patella Joint L med/ lat/ sup/ inf/ CW/CCW/ med and lat tilt Grade II Body Position Supine Reps/Duration 2 min PT-OP-T Assessment and Plan Start: 07/04/20 11:22 Freq: Status: Active Protocol: Document 07/11/20 13:01 SP (Rec: 07/11/20 15:34 SP [id number]) Physical Therapy Assessment Goals return to running Impairment pt currently unable to run d/t pain Short Term Goal (STG) pt will be able to complete a 2 mile run x 3times/ week without increase on L medial knee pain STG Duration 4 weeks Guide Dog Trainer Goal (LTG) pt will be able to complete a 5 mile run x 3times/ week without L knee discomfort LTG Duration 8 weeks single leg strength Impairment SLS on L = 20.5 inches from table, R = 18 inches Guide Dog Trainer Goal (LTG) Pt will show increase in single leg stability and strength to be able to complete single leg squat from a 18 inches surface. LTG Duration 8 weeks LEFS Impairment pt scores 77 on LEFS Guide Dog Trainer Goal (LTG) pt will score 80 on LEFS to return to her PLOF without any difficulty LTG Duration 8 weeks Assessment Summary Assessment Pt reported same 2/10 L medial knee joint line discomfort pre/ post tx especially end range flexion, no pain during added HS curls Tb seated or manual STMs rolling stick seated but this feels better to use than the ball by hand at home. Physical Therapy Plan Frequency and Duration Duration of Treatment 8 weeks Plan of Care Start Date 07/04/20 Plan of Care End Date 09/02/20 Therapeutic Interventions Therapeutic Interventions Balance Training,Coordination Training,Gait Training,Home Exercise Program,Joint Mobilizations,Manual Therapy, Neuromuscular Re-education, Patient/Caregiver Education, Self-Care/Home Management,Soft Tissue Mobilization,Taping, Therapeutic Activities, Therapeutic Exercises Modalities Cold Pack/Ice Massage,Electric Stimulation,Hot Packs, Infrared Therapy,Ultrasound Next Visit Focus/Plan Next Note Type Treatment Note Next Visit Plan Assess response to manual, up bike, resisted knee flex/ ext HEP review, added HS curl against TB and self manual roll stick. Continue per PT POC: check thessaly, star excursion STM on MCL MET on end range flexion end range flexion strengthening start with isometric, con and eCC single leg stability, leg press, step up kneeling.
--- NOTE | 2020-07-27 08:47 | PT.OPDS ---
Current Diagnoses Pain in left knee (07/11/20) Visit Care Team Role Provider Type Lary Chase Primary Care Provider Non-Staff Specialty: Family Practice Address: [address] [place] [address], [phone] Fax: Email: Ariadne Martínez DO Attending Provider Non-Staff Referring Provider Specialty: Medical Address: [address] [place] [address], [phone] Email: Visit Number PT-OP-T Assessment and Plan Start: 07/04/20 11:22 Freq: Status: Active Protocol: Document 07/27/20 08:47 (Rec: 07/27/20 08:47 [email or web address]) Physical Therapy Plan Discharge Physical Therapy Discharge Reasons Patient Request Discharge Comments pt requested to be d/c who stated she is feeling better since last tx session.
== END 2020-07-28 09:28 ==
LOC: PHYS 13:00
PROVIDERS: PCP Family Medicine; Referring Provider Family Medicine; Visit Provider Family Medicine
DX: M25.562 Pain in left knee (principal)
CPT/HCPCS: 97110; 97140; 97161

== ENCOUNTER → 2020-07-25 10:01 | Outpatient (CLI) | payer OTHER, SELFPAY ==
[2020-07-25] MEDS: COVID-19 VACC #2, MRNA(MOD) 100 MCG/0.5 ML VIAL IM (10:05)
== END ==
PROVIDERS: PCP Family Medicine; Visit Provider Internal Medicine
DX: Z23 Encounter for immunization (principal)
CPT/HCPCS: 0012A; 91301

== ENCOUNTER → 2021-04-17 08:27 | Outpatient (CLI) | payer OTHER, SELFPAY | PROVIDERS: PCP Family Medicine; Referring Provider Internal Medicine; Visit Provider Internal Medicine | DX: Z23 Encounter for immunization (principal) | CPT/HCPCS: 90471; 90686 ==

== ENCOUNTER → 2021-09-18 13:05 | Outpatient (CLI) | payer OTHER, SELFPAY ==
--- NOTE | 2021-09-18 | DI.MRI.S_ITS ---
PROCEDURE: MR KNEE LT WO CON INDICATIONS: Left knee pain TECHNIQUE: Noncontrast sagittal PD fast spin echo and T2 fast spin echo with fat saturation, sagittal 3-D FLASH with fat saturation; coronal T1 spin echo and PD fast spin echo with fat saturation, and axial PD fast spin echo with fat saturation through the knee. COMPARISON: None. FINDINGS: Image quality: Excellent. Menisci: Linear oblique high T2 signal intensity traverses the medial meniscal body and posterior horn, demonstrating inferior articular surface extension, indicating oblique tearing. Lateral meniscus is intact. Cruciate ligaments: The anterior and posterior cruciate ligaments appear intact. Medial structures: The medial collateral ligament appears intact. Visualized portions of the pes anserinus tendons appear normal. No abnormal bursal fluid. Lateral structures: The lateral collateral ligament, long and short heads of the biceps femoris tendon appear intact. The popliteus tendon appears normal. Iliotibial band appears normal. Anterior structures: The quadriceps and patellar tendons appear intact. Patellar alignment is normal. No femoral trochlear dysplasia or ventral trochlear prominence. No edema in the infrapatellar fat pad. Bones and cartilage: No bone marrow contusions or fractures. The cartilage of the medial and lateral femorotibial compartments, as well as the patellofemoral compartment, appears normal in thickness. Joint space: There is physiologic knee joint fluid. Trace Hardin's cyst. Normal appearing synovial plicae are incidentally noted. IMPRESSION: 1. Medial meniscal tearing. 2. Trace Hardin's cyst. Dictated by: Maggy Partida M.D. on 09/18/2021 at 14:21 Approved by: Maggy Partida M.D. on 09/18/2021 at 14:22
== END ==
PROVIDERS: PCP Family Medicine; Referring Provider Family Medicine; Visit Provider Family Medicine
DX: S83.242A Other tear of medial meniscus, current injury, left knee, initial encounter (principal); M25.562 Pain in left knee
CPT/HCPCS: 73721

== ENCOUNTER → 2022-04-26 18:20 | Outpatient (CLI) | payer OTHER, SELFPAY | PROVIDERS: PCP Family Medicine; Referring Provider Internal Medicine; Visit Provider Internal Medicine | DX: Z23 Encounter for immunization (principal) | CPT/HCPCS: 90471; 90686 ==

== ENCOUNTER → 2023-12-21 15:49 | Outpatient (CLI) | payer OTHER, SELFPAY ==
--- NOTE | 2023-12-21 15:51 | DI.MRI.S_ITS ---
PROCEDURE: MR KNEE RT WO CON INDICATIONS: PAIN IN RT KNEE TECHNIQUE: Noncontrast sagittal PD fast spin echo and T2 fast spin echo with fat saturation, sagittal 3-D FLASH with fat saturation; coronal T1 spin echo and PD fast spin echo with fat saturation, and axial PD fast spin echo with fat saturation through the knee. COMPARISON: [facility], MR, MR KNEE LT WO CON, 09/18/2021, 13:19. FINDINGS: Image quality: Excellent. Menisci: Oblique tear involving posterior horn of medial meniscus extending to inferior articulating surface. The lateral meniscus is intact. The meniscal root ligaments appear intact. Cruciate ligaments: The anterior cruciate ligament is mildly thickened. No ACL rupture. The PCL is intact. Medial structures: The medial collateral ligament appears intact. Visualized portions of the pes anserinus tendons appear normal. No abnormal bursal fluid. Lateral structures: The lateral collateral ligament, long and short heads of the biceps femoris tendon appear intact. The popliteus tendon appears normal Iliotibial band appears normal. Anterior structures: The quadriceps and patellar tendons appear intact. Patellar alignment is normal. No femoral trochlear dysplasia or ventral trochlear prominence. No edema in the infrapatellar fat pad. Bones and cartilage: No bone marrow contusions or fractures. The cartilage of the medial and lateral femorotibial compartments, as well as the patellofemoral compartment, appears normal in thickness. Joint space: There is small knee joint fluid. No Hardin's cyst. Normal appearing synovial plicae are incidentally noted. IMPRESSION: 1. Oblique tear involving posterior horn of medial meniscus extending to inferior articulating surface. The lateral meniscus is intact. 2. Low-grade ACL sprain. No ACL rupture. The PCL is intact. 3. No marrow edema. No fracture or dislocation. Articulating cartilages are normal in thickness. Small joint effusion, no loose bodies. Dictated by: Librado Grimm M.D. on 12/22/2023 at 13:45 Approved by: Librado Grmim M.D. on 12/22/2023 at 14:19
== END ==
LOC: MRI 15:50
PROVIDERS: PCP Family Medicine; Referring Provider Nurse Practitioner Family; Visit Provider Nurse Practitioner Family
DX: Z09 Encounter for follow-up examination after completed treatment for conditions other than malignant neoplasm (principal); S83.241A Other tear of medial meniscus, current injury, right knee, initial encounter; S83.511A Sprain of anterior cruciate ligament of right knee, initial encounter; M25.561 Pain in right knee; M25.461 Effusion, right knee
CPT/HCPCS: 73721

== ENCOUNTER → 2024-03-26 | Outpatient (CLI) | payer OTHER, SELFPAY | PROVIDERS: PCP Family Medicine; Referring Provider Internal Medicine; Visit Provider Internal Medicine | DX: Z23 Encounter for immunization (principal) | CPT/HCPCS: 90471; 90656 ==